=== PATIENT | female | born 1970 | race Caucasian/White ===

== ENCOUNTER 2018-09-25 19:20 | Emergency (ER) | payer OTHER ==
[2018-09-25 19:52] VITALS: TEMP 98.3
--- NOTE | 2018-09-25 21:05 | XR ---
EXAMINATION TYPE: XR Hip Complete LT DATE OF EXAM: 09/25/2018 CLINICAL HISTORY: Left hip pain after fall injury. TECHNIQUE: AP and frogleg views of the left hip are obtained. COMPARISON: None. FINDINGS: There is no acute fracture/dislocation evident in the left hip. Mild axial joint space los s is present. The overlying soft tissue appears unremarkable. IMPRESSION: There is no acute fracture or dislocation in the left hip.
--- NOTE | 2018-09-25 21:06 | XR ---
EXAMINATION TYPE: XR ankle complete RT DATE OF EXAM: 09/25/2018 CLINICAL HISTORY: Pain after fall. TECHNIQUE: Frontal, lateral and oblique images of the right ankle are obtained. COMPARISON: Right ankle x-ray February 14, 2011 FINDINGS: There is no acute fracture/dislocation evident in the right ankle. The ankle mortise appe ars within normal limits. Tiny inferior calcaneal spur is now present. The overlying soft tissue hanh ears unremarkable. IMPRESSION: There is no acute fracture or dislocation in the right ankle.
--- NOTE | 2018-09-25 21:07 | XR ---
EXAMINATION TYPE: XR wrist complete LT DATE OF EXAM: 09/25/2018 CLINICAL HISTORY: Pain after fall injury TECHNIQUE: Frontal, lateral, scaphoid, and oblique images of the left wrist are obtained. COMPARISON: None FINDINGS: There is no acute fracture/dislocation evident in the left wrist. The joint spaces in the left wrist appear within normal limits. The overlying soft tissue appears unremarkable. IMPRESSION: There is no acute fracture or dislocation in the left wrist.
--- NOTE | 2018-09-25 21:59 | ED ---
General Adult HPI - General Source: patient, RN notes reviewed, old records reviewed Mode of arrival: ambulatory Limitations: no limitations <José Gore - Last Filed: 09/26/18 00:48> <Jessie Arredondo - Last Filed: 09/26/18 04:27> - General Chief complaint: Fall Stated complaint: IHS-Fall Time Seen by Provider: 09/25/18 21:13 - History of Present Illness Initial comments: 48-year-old female patient with no pertinent past medical history presents to ED after sustaining a slip and fall at a pool today. Patient reports that she slipped on the slick ground, fell on her left hip. Patient complains of left hip left wrist and right ankle pain. Patient is ambulatory. Patient denies any head or neck trauma. Patient had any blood thinners. Patient denies all other complaints. Systemic: Pt denies fatigue, fever/chills, rash. Pt denies weakness, night sweats, weight loss. Neuro: Pt denies headache, visual disturbances, syncope or pre-syncope. HEENT: Pt denies ocular discharge or irritation, otalgia, rhinorrhea, pharyngitis or notable lymphadenopathy. Cardiopulmonary: Pt denies chest pain, SOB, heart palpitations, dyspnea on exertion. Abdominal/GI: Pt denies abdominal pain, n/v/d. : Pt denies dysuria, burning w/ urination, frequency/urgency. Denies new onset urinary or bowel incontinence. MSK: Pt denies loss of strength or function in extremities. Neuro: Pt denies new onset weakness, paresthesias. (José Gore) - Related Data Allergies Allergy/AdvReac Type Severity Reaction Status Date / Time shellfish derived [Shellfish] Allergy Unknown Verified 09/25/18 19:52 Review of Systems ROS Other: All systems not noted in ROS Statement are negative. <José Gore - Last Filed: 09/26/18 00:48> ROS Other: All systems not noted in ROS Statement are negative. <Jessie Arredondo - Last Filed: 09/26/18 04:27> ROS Statement: Those systems with pertinent positive or pertinent negative responses have been documented in the HPI. Past Medical History Past Medical History: Hyperlipidemia, Hypertension History of Any Multi-Drug Resistant Organisms: None Reported Additional Past Surgical History / Comment(s): Right ankle surgery Past Psychological History: No Psychological Hx Reported Smoking Status: Never smoker Past Alcohol Use History: Occasional Past Drug Use History: None Reported <José Gore - Last Filed: 09/26/18 00:48> General Exam Limitations: no limitations <José Gore - Last Filed: 09/26/18 00:48> <Jessie Arredondo P - Last Filed: 09/26/18 04:27> - General Exam Comments Initial Comments: Constitutional: NAD, AOX3, Pt has pleasant affect. HEENT: NC/AT, trachea midline, neck supple, no lymphadenopathy. Posterior pharynx non erythematous, without exudates. External ears appear normal, without discharge. Mucous membranes moist. Eyes PERRLA, EOM intact. There is no scleral icterus. No pallor noted. Cardiopulmonary: RRR, no murmurs, rubs or gallops, no JVD noted. Lungs CTAB in anterior and posterior [place]. No peripheral edema. Abdominal exam: Abdomen soft and non-distended. Abdomen non-tender to palpation in all 4 quadrants. Bowel sounds active in LLQ. No hepatosplenomegaly. No ecchymosis Neuro: CN II-XII grossly intact. No nuchal rigidity. MSK: L hip mildly tender to palpation, no ecchymosis. Ulnar aspect of left wrist mildly tender to palpation, full active ROM. Full strength. R ankle nontender to palpation. No other areas of tenderness. No posterior calf tenderness bilaterally, homans sign negative bilaterally. Posterior tibialis and radial pulse +2 bilaterally. Sensation intact in upper and lower extremities. Full active ROM in upper and lower extremities, 5/5 stregnth. (José Gore) Vital Signs 09/25/18 09/25/18 19:48 22:30 Temperature 98.3 F Pulse Rate 85 78 Respiratory 18 16 Rate Blood Pressure 141/103 178/98 O2 Sat by Pulse 99 97 Oximetry Medical Decision Making <José Gore - Last Filed: 09/26/18 00:48> <Jessie Arredondo - Last Filed: 09/26/18 04:27> - Medical Decision Making 48-year-old female patient with no pertinent past medical history presents to ED after sustaining a slip and fall at a pool today. Patient reports that she slipped on the slick ground, fell on her left hip. Patient complains of left hip left wrist and right ankle pain. Patient is ambulatory. Patient denies any head or neck trauma. Patient had any blood thinners. Patient denies all other complaints. Pt VSS, afebrile. Pt pain in ED improved without intervention. Physical exam displayed: L hip mildly tender to palpation, no ecchymosis. Ulnar aspect of left wrist mildly tender to palpation, full active ROM. Full strength. R ankle nontender to palpation. No other areas of tenderness. No posterior calf tenderness bilaterally, homans sign negative bilaterally. Posterior tibialis and radial pulse +2 bilaterally. Sensation intact in upper and lower extremities. Full active ROM in upper and lower extremities, 5/5 stregnth. Plain film of left wrist, left hip, right ankle didn' t display acute pathology. Findings explained to pt at [facility]. Pt to follow up with primary care provider for continued evaluation. Patient to return to ED if descends symptoms develop or if condition worsens in any way. Case discussed with Dr. Arredondo. (José Gore) I was available for consultation in the emergency department. The history and physical exam were done by the midlevel provider. I was consulted for this patient's care. I reviewed the case with the midlevel provider and based on their presentation of the patient, I agree with the assessment, medical decision making and plan of care as documented. (Jessie Arredondo) Disposition Is patient prescribed a controlled substance at d/c from ED?: No Time of Disposition: 21:58 <José Gore - Last Filed: 09/26/18 00:48> <Jessie Arredondo - Last Filed: 09/26/18 04:27> Clinical Impression: Fall Disposition: HOME SELF-CARE Condition: Stable Instructions (If sedation given, give patient instructions): Fall Prevention ( ED) Additional Instructions: Patient to adhere to previously discussed treatment plan and will take medication(s) as directed. Patient to follow up with PCP in 1-2 days. Patient to return to ED if symptoms do not improve. Referrals: Angeli Harper MD [Primary Care Provider] - 1-2 days
[2018-09-25 23:32] VITALS: BP 178/98; PULSE 78; RESP 16
== END 2018-09-25 22:30 | disposition home or self-care (01) ==
LOC: EC 19:20
DX: Z04.2 Encounter for examination and observation following work accident (principal); Z91.013 Allergy to seafood; Y99.0 Civilian activity done for income or pay
CPT/HCPCS: 73502; 99284

== ENCOUNTER → 2018-10-03 | Outpatient (CLI) | payer OTHER ==
--- NOTE | 2018-10-03 18:33 | XR ---
PROCEDURE: XR wrist complete LT - 4V DATE AND TIME: 10/03/2018 6:04 PM CLINICAL INDICATION: PHH; S13.4XXA; S33.5XXA; S63.502A TECHNIQUE: AP, lateral, oblique, and scaphoid views were obtained. COMPARISON: 09/25/2018 FINDINGS: There is no fracture or malalignment. The soft tissues are unremarkable. IMPRESSION: NO ACUTE PROCESS.
--- NOTE | 2018-10-03 18:34 | XR ---
PROCEDURE: XR lumbar spine - 3V DATE AND TIME: 10/03/2018 6:04 PM CLINICAL INDICATION: PHH; S13.4XXA; S33.5XXA; S63.502A TECHNIQUE: Department protocol COMPARISON: None FINDINGS: There is no fracture or malalignment. The soft tissues are unremarkable. Moderate mid and lower lumbar facet osteoarthritis changes are noted, mild multilevel degenerative di sc changes. IMPRESSION: NO ACUTE PROCESS.
--- NOTE | 2018-10-03 18:35 | XR ---
PROCEDURE: XR cervical spine limited - 3V DATE AND TIME: 10/03/2018 6:04 PM CLINICAL INDICATION: PHH; S13.4XXA; S33.5XXA; S63.502A TECHNIQUE: Department protocol COMPARISON: None FINDINGS: There is no fracture or malalignment. The soft tissues are unremarkable. IMPRESSION: NO ACUTE PROCESS.
== END | disposition home or self-care (01) ==
LOC: RADXRMAIN 17:29
PROVIDERS: ATTEND Emergency Medicine
DX: S13.4XXA Sprain of ligaments of cervical spine, initial encounter (principal); S33.5XXA Sprain of ligaments of lumbar spine, initial encounter; S63.502A Unspecified sprain of left wrist, initial encounter
CPT/HCPCS: 72040; 72100

== ENCOUNTER 2021-01-11 20:00 | Emergency (ER) | payer OTHER ==
[2021-01-11 20:05] VITALS: BP 159/94; PULSE 99; RESP 18; TEMP 98.4
[2021-01-11] MEDS ORDERED: DIPH,PERTUS(ACELL)TETVAC-LF 0.5 ML VIAL IM ONE (20:16)
[2021-01-11] MEDS ORDERED: AMOXIC-POT CLAV 875-125MG 1 EACH TAB PO STA (20:16)
[2021-01-11] MEDS ORDERED: MORPHINE SULFATE 4 MG/ML SYRINGE IV STA (20:16)
[2021-01-11] MEDS ORDERED: LIDOCAINE 1% INJ 10MG/ML (20 ML MDV) SQ ONE (20:17)
--- NOTE | 2021-01-11 21:08 | XR ---
EXAMINATION TYPE: XR finger RT DATE OF EXAM: 01/11/2021 COMPARISON: NONE HISTORY: Second digit puncture TECHNIQUE: 3 views FINDINGS: I see no fracture nor dislocation. Joint spaces are normal. There is no evidence of a forei gn body. IMPRESSION: Negative right index finger exam.
[2021-01-11] MEDS ORDERED: MORPHINE SULFATE 4 MG/ML SYRINGE IM STA (21:14)
--- NOTE | 2021-01-11 21:56 | ED ---
Animal Bite HPI - General Chief Complaint: Animal Bite Stated Complaint: Dog Bite Time Seen by Provider: 01/11/21 20:06 Source: patient, RN notes reviewed Mode of arrival: ambulatory Limitations: no limitations - History of Present Illness Initial Comments: Patient is a 50-year-old female presents emergency by complaining of dog bite to the right index finger and middle finger. She notes that her dog was eating a rib bone which try to restore taken on her dog bit her. She notes that the dog is up-to-date on vaccinations. She noted she came in to evaluate for possible sutures and updated tetanus and antibiotics. She was in no apparent distress or pain while sitting up and during the exam interview. She denied any other complaints or issues. She did state she had full range of motion and feeling in her right index finger. She denied chest pain first breath headache nausea vomiting diarrhea constipation fever fatigue chills. - Related Data Previous Rx's Medication Instructions Recorded Amoxicillin/Potassium Clav 1 tab PO Q12HR #20 tab 01/11/21 [Augmentin 875-125 Tablet] Allergies Allergy/AdvReac Type Severity Reaction Status Date / Time shellfish derived [Shellfish] Allergy Unknown Verified 01/11/21 20:03 Review of Systems ROS Statement: Those systems with pertinent positive or pertinent negative responses have been documented in the HPI. ROS Other: All systems not noted in ROS Statement are negative. Past Medical History Past Medical History: Hyperlipidemia, Hypertension History of Any Multi-Drug Resistant Organisms: None Reported Additional Past Surgical History / Comment(s): Right ankle surgery Past Psychological History: No Psychological Hx Reported Smoking Status: Never smoker Past Alcohol Use History: Occasional Past Drug Use History: None Reported General Exam Limitations: no limitations General appearance: alert, in no apparent distress Head exam: Present: atraumatic, normocephalic, normal inspection Neck exam: Present: normal inspection Respiratory exam: Present: normal lung sounds bilaterally. Absent: respiratory distress, wheezes, rales, rhonchi, stridor Cardiovascular Exam: Present: regular rate, normal rhythm, normal heart sounds. Absent: systolic murmur, diastolic murmur, rubs, gallop, clicks GI/Abdominal exam: Present: soft, normal bowel sounds. Absent: distended, tenderness, guarding, rebound, rigid Right Hand Wrist exam: Present: full ROM, tenderness (Right index finger), abrasion, laceration (3 similar laceration to the right index finger on the lateral aspect wrapping around to the ventral side.) Neurological exam: Present: alert, oriented X3, CN II-XII intact Psychiatric exam: Present: normal affect, normal mood Skin exam: Present: warm, dry, intact, normal color. Absent: rash Course Vital Signs 01/11/21 20:01 Temperature 98.4 F Pulse Rate 99 Respiratory 18 Rate Blood Pressure 159/94 O2 Sat by Pulse 99 Oximetry Procedures - Laceration Laceration #1 Consent Obtained: verbal consent Indication: laceration Site: hand (Right index finger) Size (cm): 3 Description: linear Depth: simple, single layer Anesthetic Used: lidocaine 1% Anesthesia Technique: local infiltration Amount (mls): 3 Pre-repair: irrigated extensively Type of Sutures: nylon Size of Sutures: 5-0 Number of Sutures: 4 Technique: simple, interrupted Patient Tolerated Procedure: well, no complications Medical Decision Making - Medical Decision Making Patient is a 50-year-old female with a dog bite to the right hand, index finger. X-ray of the right fingers, Augmentin 875, tetanus vaccine, lidocaine, 4 monos morphine ordered. X-ray negative for any acute process. Case discussed with Dr. Potter, patient discharge home with anabiotic therapy. - Radiology Data Radiology results: report reviewed, image reviewed Right index finger x-ray: No acute fractures dislocations. Disposition Clinical Impression: Bite by animal, Dog bite Disposition: HOME SELF-CARE Condition: Stable Instructions (If sedation given, give patient instructions): Animal Bite (ED) Additional Instructions: Please return to the Emergency Department if symptoms worsen or any other concerns. Keep area clean and dry can wash with warm water gentle soap. Take antibiotics as prescribed until complete. Can take Tylenol Motrin as needed for pain control. Return in 5-7 days as sutures removed. Is patient prescribed a controlled substance at d/c from ED?: No Referrals: Agneli Harper MD [Primary Care Provider] - 1-2 days Time of Disposition: 21:55
== END 2021-01-11 22:23 | disposition home or self-care (01) ==
LOC: EC 20:00
DX: S61.210A Laceration without foreign body of right index finger without damage to nail, initial encounter (principal); E78.5 Hyperlipidemia, unspecified; I10 Essential (primary) hypertension; W54.0XXA Bitten by dog, initial encounter; Z23 Encounter for immunization
CPT/HCPCS: 73140; 90715; 99283; 12002; 90471; 96372 ×2; J2270; J2001